=== PATIENT | male | born 1960 | race Caucasian/White ===

== ENCOUNTER 2021-09-27 16:41 | Observation (INO) | payer OTHER ==
[~2021-09-27] VITALS: Ht 185.4 cm; Wt 72.6 kg
[2021-09-27 17:46] LABS: HEMOGLOBIN 14.5 gm/dl (14.0-17.5); RED BLOOD COUNT 4.49 M/UL (4.20-5.50); WHITE BLOOD COUNT 8.3 K/UL (4.5-11.0)
[2021-09-27 18:05] LABS: BUN/CREATININE RATIO 11 (0-10)
[2021-09-28 06:11] LABS: BUN/CREATININE RATIO 8 (0-10)
[2021-09-28 06:17] LABS: HEMOGLOBIN 14.4 gm/dl (14.0-17.5); RED BLOOD COUNT 4.32 M/UL (4.20-5.50); WHITE BLOOD COUNT 5.5 K/UL (4.5-11.0)
[2021-09-28] MEDS ORDERED: PROAIR HFA8.5 GM INH (12:16)
[2021-09-28] MEDS ORDERED: ARTIFICIAL TEAR15 M6 OU (12:17)
[2021-09-28] MEDS ORDERED: ASPIRIN EC81 MG PO (12:17)
[2021-09-28] MEDS ORDERED: ATORVASTATIN CA20 MG PO (12:17)
[2021-09-28] MEDS ORDERED: CYCLOBENZAPRINE10 MG PO (12:17)
[2021-09-28] MEDS ORDERED: JARDIANCE25 MG PO (12:18)
[2021-09-28] MEDS ORDERED: IBU800 MG PO (12:18)
[2021-09-28] MEDS ORDERED: LORATADINE10 MG PO (12:18)
[2021-09-28] MEDS ORDERED: WIXELA 250-501 EACH INH (12:18)
[2021-09-28] MEDS ORDERED: OMEPRAZOLE40 MG PO (12:19)
[2021-09-28] MEDS ORDERED: METFORMIN HCL1000 MG PO (12:19)
[2021-09-28] MEDS ORDERED: METOPROLOL TART25 MG PO (12:19)
[2021-09-29 03:17] LABS: RED BLOOD COUNT 4.31 M/UL (4.20-5.50); WHITE BLOOD COUNT 5.5 K/UL (4.5-11.0)
[2021-09-29 03:45] LABS: BUN/CREATININE RATIO 8 (0-10)
[2021-09-29] MEDS ORDERED: NICOTINE PATCH1 EAC2 TOP (15:13)
[2021-09-29] MEDS ORDERED: DULERA 200 MCG8.8 GM INH (15:13)
--- NOTE | 2021-09-29 16:31 | NUR ---
1555: PATIENT DEMANDING "REAL FOOD TO EAT, NOW". RN NOTIFIED DR. BUSCH WITH PATIENT REQUEST. NEW ORDER RECEIVED. RN MADE PATIENT AWARE OF DIET CHANGE. UPON ENTERING THE ROOM, PATIENT ALREADY EATING FAST-FOOD MEAL BROUGHT IN BY GIRLFRIEND.
== END 2021-09-29 18:31 | disposition home or self-care (01) ==
LOC: ER1 16:41 → CDU 22:22 → M/S 09-28 08:35
PROVIDERS: Internal Medicine; Physician Assistant; ADMIT Internal Medicine
DX: K29.00 Acute gastritis without bleeding (principal); Z20.822 Contact with and (suspected) exposure to COVID-19; R00.1 Bradycardia, unspecified; E11.649 Type 2 diabetes mellitus with hypoglycemia without coma; Z66 Do not resuscitate; F17.210 Nicotine dependence, cigarettes, uncomplicated; K21.9 Gastro-esophageal reflux disease without esophagitis; K22.70 Barrett's esophagus without dysplasia; I71.9 Aortic aneurysm of unspecified site, without rupture; E78.5 Hyperlipidemia, unspecified; M19.90 Unspecified osteoarthritis, unspecified site; E44.0 Moderate protein-calorie malnutrition; J44.9 Chronic obstructive pulmonary disease, unspecified; Z68.21 Body mass index [BMI] 21.0-21.9, adult; Z79.82 Long term (current) use of aspirin; Z79.84 Long term (current) use of oral hypoglycemic drugs; Z79.899 Other long term (current) drug therapy; Z88.5 Allergy status to narcotic agent; Z88.6 Allergy status to analgesic agent; Z88.8 Allergy status to other drugs, medicaments and biological substances
CPT/HCPCS: 36415; 71045; 80048; 80053; 80061; 81001; 82550; 82553; 82607; 82728; 82746; 82962; 83036; 83540; 83550; 84100; 84439; 84443; 84484; 84550; 85025; 85045; 85610; 86140; 93005; 94664; 94760; 96374; 96375; 96376; 99285; C9113; G0378; J2405; J7030; Q9967; U0002

== ENCOUNTER 2021-10-09 21:40 | Emergency (ER) | payer OTHER ==
[~2021-10-09 21:40] MED LIST: ARTIFICIAL TEAR15 M6 OU; ASPIRIN EC81 MG PO; ATORVASTATIN CA20 MG PO; CYCLOBENZAPRINE10 MG PO; DULERA 200 MCG8.8 GM INH; IBU800 MG PO; JARDIANCE25 MG PO; LORATADINE10 MG PO; METFORMIN HCL1000 MG PO; METOPROLOL TART25 MG PO; NICOTINE PATCH1 EAC2 TOP; OMEPRAZOLE40 MG PO; PROAIR HFA8.5 GM INH; WIXELA 250-501 EACH INH
[2021-10-09 22:46] LABS: RED BLOOD COUNT 4.71 M/UL (4.20-5.50); WHITE BLOOD COUNT 9.4 K/UL (4.5-11.0)
[2021-10-09 23:09] LABS: BUN/CREATININE RATIO 15 (0-10)
== END 2021-10-10 03:30 | disposition home or self-care (01) ==
LOC: ER1 21:40
PROVIDERS: Family Medicine
DX: R07.9 Chest pain, unspecified (principal); R10.9 Unspecified abdominal pain; G89.29 Other chronic pain; R11.2 Nausea with vomiting, unspecified; F32.9 Major depressive disorder, single episode, unspecified; F10.10 Alcohol abuse, uncomplicated; R45.851 Suicidal ideations; Z20.822 Contact with and (suspected) exposure to COVID-19; E10.9 Type 1 diabetes mellitus without complications; Y90.8 Blood alcohol level of 240 mg/100 ml or more; I10 Essential (primary) hypertension; F17.200 Nicotine dependence, unspecified, uncomplicated
CPT/HCPCS: 0240U; 71045; 80053; 82550; 82553; 83690; 84484; 85025; 93005; 99285; G0480

== ENCOUNTER 2021-11-06 22:48 | Emergency (ER) | payer OTHER ==
[2021-11-06 23:38] LABS: HEMOGLOBIN 15.3 gm/dl (14.0-17.5); RED BLOOD COUNT 4.43 M/UL (4.20-5.50); WHITE BLOOD COUNT 7.3 K/UL (4.5-11.0)
[2021-11-07 00:05] LABS: BUN/CREATININE RATIO 14 (0-10)
== END 2021-11-08 13:50 | disposition short-term general hospital (02) ==
LOC: ER1 22:48
PROVIDERS: Emergency Medicine
DX: R45.851 Suicidal ideations (principal); F10.129 Alcohol abuse with intoxication, unspecified; Z20.822 Contact with and (suspected) exposure to COVID-19
CPT/HCPCS: 80048; 80307; 85025; 99285; G0480; U0002